=== PATIENT | female | born 1950 | race Two or more races ===

== ENCOUNTER 2018-10-02 01:00 | Inpatient (IN) | payer MEDICARE, OTHER ==
[2018-10-02] MEDS: IPRATROPIUM (NEB) 0.5 MG/2.5 ML AMP HHN (01:19)
[2018-10-02] MEDS: LEVALBUTEROL (NEB) 1.25 MG/0.5 ML AMP HHN ×2 (01:20→22:35)
[2018-10-02] MEDS ORDERED: ACETAMINOPHEN 650 MG SUPP PR (01:30)
[2018-10-02 01:32] LABS: WHITE BLOOD COUNT 11.4 10^3/ul (4.8-10.8)
[2018-10-02 01:32] LABS: HEMATOCRIT 39.8 % (37.0-47.0); MEAN CORPUSCULAR HEMOGLOBIN 20.9 pg (29.0-33.0); MEAN CORPUSCULAR HGB CONC 30.2 g/dl (32.0-37.0); MEAN CORPUSCULAR VOLUME 69.2 fl (82.0-101.0); MEAN PLATELET VOLUME 8.8 fl (7.4-10.4); PLATELET COUNT 388 10^3/UL (140-415); RED BLOOD COUNT 5.75 10^6/ul (4.20-5.40); RED CELL DISTRIBUTION WIDTH 19.9 % (11.5-14.5)
[2018-10-02] MEDS: CEFTRIAXONE 1 GM/50 ML (PMX) 50 ML IVPB (01:35)
[2018-10-02] MEDS: SODIUM CHLORIDE 0.9% 1L BAG IV* (01:35)
[2018-10-02 01:41] LABS: ADD MAN DIFF? YES; POSITIVE DIFF @See below
[2018-10-02 01:52] LABS: INR 1.73; PARTIAL THROMBOPLASTIN TIME 41.8 Sec (23.0-35.0); PROTIME 20.6 Sec (11.9-14.9); PT RATIO 1.6
[2018-10-02 01:57] LABS: ALANINE AMINOTRANSFERASE 17 IU/L (13-69); ALBUMIN 4.5 g/dl (3.3-4.9); ALBUMIN/GLOBULIN RATIO 1.66; ALKALINE PHOSPHATASE 111 IU/L (42-121); ANION GAP 16 (5-13); ASPARTATE AMINO TRANSFERASE 20 IU/L (15-46); BILIRUBIN,INDIRECT 0.9 mg/dl (0-1.1); BILIRUBIN,TOTAL 0.9 mg/dl (0.2-1.3); BLOOD UREA NITROGEN 21 mg/dl (7-20); CALCIUM 9.3 mg/dl (8.4-10.2); CARBON DIOXIDE 23 mmol/L (21-31); CHLORIDE 99 mmol/L (97-110); CREATININE 1.16 mg/dl (0.44-1.00); Estimated GFR 46 mL/min (>60); GLUCOSE 149 mg/dl (70-220); SODIUM 138 mmol/L (135-144); TOTAL PROTEIN 7.2 g/dl (6.1-8.1)
[2018-10-02 02:15] LABS: ADD UMIC YES; UR ASCORBIC ACID 40 mg/dL (NEGATIVE); UR BACTERIA FEW /HPF (NONE SEEN); UR BILIRUBIN (Dip) NEGATIVE (NEGATIVE); UR BLOOD (Dip) NEGATIVE (NEGATIVE); UR CLARITY SLIGHTLY CLOUDY (CLEAR); UR COLOR YELLOW (YELLOW); UR GLUCOSE (Dip) NEGATIVE (NEGATIVE); UR KETONES (Dip) NEGATIVE (NEGATIVE); UR LEUKOCYTE ESTERASE (Dip) 1+ Leu/ul (NEGATIVE); UR NITRITE (Dip) NEGATIVE (NEGATIVE); UR RBC 8 /HPF (0-5); UR SPECIFIC GRAVITY (Dip) 1.012 (1.003-1.030); UR TOTAL PROTEIN (Dip) 3+ mg/dl (NEGATIVE); UR UROBILINOGEN (Dip) NEGATIVE (NEGATIVE); UR WBC 20 /HPF (0-5)
[2018-10-02 02:19] LABS: AADO2 Arterial 162.7 mmHg (7.0-24.0); Allen Test ACCEPTAB; Arterial Base Excess 0.4 mmol/L (-3.0-3); Arterial Blood Gas Oxygen Sat 91.1 mmHG (95.0-98.0); Arterial COHb 1.1 % (0.0-3.0); Arterial HCO3 23.5 mmol/L (22.0-26.0); Arterial MetHb 0.1 % (0.0-1.5); Arterial Total Hemglobin 12.1 g/dl (12.0-18.0); Arterial pCO2 32.9 mmhg (35-45); MODE NASAL CANNULA; Site Right Radial
[2018-10-02] MEDS: AZITHROMYCIN 500MG/NS (PMX) 250 ML IVPB (02:21)
[2018-10-02 02:27] LABS: ANISOCYTOSIS 2+ (0-0); BAND NEUTROPHILS % (M) 9 % (0-4); BASOPHIL #M 0.2 10^3/ul (0.0-0.0); BASOPHILS % (M) 2 % (0-2); EOSINOPHILS % (M) 1 % (0-7); LYMPHOCYTES #M 1.3 10^3/ul (0.8-2.9); LYMPHOCYTES % (M) 12 % (15-51); MICROCYTOSIS 2+ (0-0); MONOCYTE #M 0.2 10^3/ul (0.3-0.9); MONOCYTES % (M) 2 % (0-11); MYELOCYTES #M 0.1 10^3/ul (0.0-0.0); MYELOCYTES % (M) 1 % (0-0); PLATELET ESTIMATE NORMAL; POIKILOCYTOSIS 2+ (0-0); REACTIVE LYMPHOCYTES #M 0.1 10^3/ul (0.0-0.0); REACTIVE LYMPHOCYTES% (M) 1 % (0-0); SEG NEUT #M 8.3 10^3/ul (1.6-7.5); SEGMENTED NEUTROPHILS (M) % 72 % (39-77); SMUDGE%M 7 % (0-0)
[2018-10-02] MEDS: ACETAMINOPHEN 325 MG TAB PO (02:44)
[2018-10-02] MEDS ORDERED: ONDANSETRON 4 MG INJ IV (03:00)
[2018-10-02] MEDS: SOD CHLORIDE 0.9% 1,000 ML IV ×2 (04:49→22:08)
[2018-10-02 06:23] LABS: LACTIC ACID 0.9 mmol/L (0.5-2.0)
[2018-10-02 06:36] LABS: IRON 11 ug/dl (35-150)
[2018-10-02 06:46] LABS: % IRON SATURATION 3 % SAT (22-52); TOTAL IRON BINDING CAPACITY 360 ug/dl (241-421)
[2018-10-02] MEDS: PIPER-TAZO 3.375 GM IV (PMX) 100 ML IVPB ×3 (06:47→17:23)
[2018-10-02] MEDS: PANTOPRAZOLE (EC) 40 MG TAB PO (06:47)
[2018-10-02] MEDS: LEVOTHYROXINE 50 MCG TAB PO (06:47)
[2018-10-02 07:07] LABS: FERRITIN 39.3 ng/ml (11.1-264.0)
[2018-10-02] MEDS: DOFETILIDE 125 MCG CAPSULE PO ×2 (09:00→14:25)
[2018-10-02 09:52] LABS: LACTIC ACID 1.2 mmol/L (0.5-2.0)
[2018-10-02] MEDS: ASPIRIN (EC) 81 MG TAB PO (09:54)
[2018-10-02] MEDS: DILTIAZEM (CD) 180 MG CAP PO (09:54)
[2018-10-02] MEDS: APIXABAN 5 MG TABLET PO ×2 (09:54→22:07)
[2018-10-02] MEDS: ACETAMINOPHEN 650MG/20.3ML CUP PO ×2 (14:27→22:09)
[2018-10-02 14:32] LABS: LACTIC ACID 0.9 mmol/L (0.5-2.0)
[2018-10-02] MEDS: ATORVASTATIN 10 MG TAB PO (22:07)
[2018-10-02] MEDS: IPRATROPIUM (NEB) 0.5 MG/2.5 ML AMP NEB (22:36)
[2018-10-03] MEDS: DOFETILIDE 125 MCG CAPSULE PO ×3 (00:11→20:38)
[2018-10-03] MEDS: PIPER-TAZO 3.375 GM IV (PMX) 100 ML IVPB ×4 (00:11→17:36)
[2018-10-03 05:36] LABS: ADD MAN DIFF? NO
[2018-10-03 05:42] LABS: BASOPHIL # 0.1 10^3/ul (0.0-0.1); BASOPHILS % 0.8 % (0.0-2.0); EOSINOPHILS # 0.1 10^3/ul (0.0-0.5); EOSINOPHILS % 1.4 % (0.0-7.0); HEMATOCRIT 35.5 % (37.0-47.0); HEMOGLOBIN 10.5 g/dl (12.0-16.0); LYMPHOCYTES # 0.9 10^3/ul (0.8-2.9); LYMPHOCYTES % 9.4 % (15.0-51.0); MEAN CORPUSCULAR HGB CONC 29.6 g/dl (32.0-37.0); MONOCYTES % 10.8 % (0.0-11.0); NEUTROPHILS % 76.9 % (39.0-77.0); PLATELET COUNT 422 10^3/UL (140-415); RED CELL DISTRIBUTION WIDTH 19.7 % (11.5-14.5)
[2018-10-03 05:42] LABS: WHITE BLOOD COUNT 9.1 10^3/ul (4.8-10.8)
[2018-10-03] MEDS: PANTOPRAZOLE (EC) 40 MG TAB PO (06:20)
[2018-10-03] MEDS: LEVOTHYROXINE 50 MCG TAB PO (06:20)
[2018-10-03 07:29] LABS: ALANINE AMINOTRANSFERASE 19 IU/L (13-69); ALBUMIN 3.6 g/dl (3.3-4.9); ALKALINE PHOSPHATASE 80 IU/L (42-121); ANION GAP 12 (5-13); ASPARTATE AMINO TRANSFERASE 25 IU/L (15-46); BILIRUBIN,INDIRECT 0.5 mg/dl (0-1.1); BILIRUBIN,TOTAL 0.5 mg/dl (0.2-1.3); BLOOD UREA NITROGEN 13 mg/dl (7-20); CALCIUM 9.2 mg/dl (8.4-10.2); CARBON DIOXIDE 20 mmol/L (21-31); CHLORIDE 108 mmol/L (97-110); CREATININE 0.82 mg/dl (0.44-1.00); Estimated GFR > 60 mL/min (>60); GLUCOSE 116 mg/dl (70-220); POTASSIUM 4.5 mmol/L (3.5-5.1); SODIUM 140 mmol/L (135-144); TOTAL PROTEIN 5.6 g/dl (6.1-8.1)
[2018-10-03] MEDS: METHYLPREDNISOLONE 40 MG INJ IV ×3 (10:29→22:00)
[2018-10-03] MEDS: APIXABAN 5 MG TABLET PO ×2 (10:29→20:36)
[2018-10-03] MEDS: ASPIRIN (EC) 81 MG TAB PO (10:29)
[2018-10-03] MEDS: DILTIAZEM (CD) 180 MG CAP PO (10:31)
[2018-10-03] MEDS: FUROSEMIDE 20 MG INJ IV ×2 (15:13→20:36)
[2018-10-03 16:26] LABS: B-TYPE NATRIURETIC PEPTIDE 1440 PG/ML (0-125)
[2018-10-03] MEDS: SOD FERRIC GLUC COMPLX 125 MG in SOD CHLORIDE 0.9% 100 ML IVPB (18:34)
[2018-10-03] MEDS: IPRATROPIUM (NEB) 0.5 MG/2.5 ML AMP NEB (20:06)
[2018-10-03] MEDS: traZODone 50 MG TAB PO (20:36)
[2018-10-03] MEDS: ATORVASTATIN 10 MG TAB PO (20:36)
[2018-10-04 05:38] LABS: ADD MAN DIFF? NO
[2018-10-04 05:42] LABS: BASOPHILS % 0.2 % (0.0-2.0); HEMATOCRIT 31.4 % (37.0-47.0); HEMOGLOBIN 9.4 g/dl (12.0-16.0); LYMPHOCYTES # 0.6 10^3/ul (0.8-2.9); MEAN CORPUSCULAR HEMOGLOBIN 20.9 pg (29.0-33.0); MEAN CORPUSCULAR HGB CONC 29.9 g/dl (32.0-37.0); MEAN CORPUSCULAR VOLUME 69.9 fl (82.0-101.0); MONOCYTE # 0.6 10^3/ul (0.3-0.9); MONOCYTES % 6.8 % (0.0-11.0); NEUTROPHIL # 6.8 10^3/ul (1.6-7.5); PLATELET COUNT 418 10^3/UL (140-415); RED BLOOD COUNT 4.49 10^6/ul (4.20-5.40); RED CELL DISTRIBUTION WIDTH 19.7 % (11.5-14.5)
[2018-10-04 05:42] LABS: WHITE BLOOD COUNT 8.1 10^3/ul (4.8-10.8)
[2018-10-04] MEDS: METHYLPREDNISOLONE 40 MG INJ IV (06:10)
[2018-10-04] MEDS: LEVOTHYROXINE 50 MCG TAB PO (06:10)
[2018-10-04] MEDS: PANTOPRAZOLE (EC) 40 MG TAB PO (06:10)
[2018-10-04] MEDS: PIPER-TAZO 3.375 GM IV (PMX) 100 ML IVPB ×3 (06:11→12:47)
[2018-10-04] MEDS: FUROSEMIDE 20 MG INJ IV ×2 (06:56→19:00)
[2018-10-04 07:36] LABS: ALANINE AMINOTRANSFERASE 24 IU/L (13-69); ALBUMIN 3.7 g/dl (3.3-4.9); ALKALINE PHOSPHATASE 69 IU/L (42-121); ANION GAP 10 (5-13); ASPARTATE AMINO TRANSFERASE 21 IU/L (15-46); BILIRUBIN,INDIRECT 0.2 mg/dl (0-1.1); BILIRUBIN,TOTAL 0.2 mg/dl (0.2-1.3); BLOOD UREA NITROGEN 16 mg/dl (7-20); CALCIUM 9.3 mg/dl (8.4-10.2); CARBON DIOXIDE 23 mmol/L (21-31); CHLORIDE 107 mmol/L (97-110); CREATININE 0.83 mg/dl (0.44-1.00); Estimated GFR > 60 mL/min (>60); GLUCOSE 143 mg/dl (70-220); POTASSIUM 4.3 mmol/L (3.5-5.1); SODIUM 140 mmol/L (135-144)
[2018-10-04] MEDS: IPRATROPIUM (NEB) 0.5 MG/2.5 ML AMP NEB (09:09)
[2018-10-04] MEDS ORDERED: ALBUTEROL/IPRATROPIUM (NEB) 3 ML AMP HHN (09:30)
[2018-10-04] MEDS: ASPIRIN (EC) 81 MG TAB PO (09:45)
[2018-10-04] MEDS: DOFETILIDE 125 MCG CAPSULE PO ×2 (09:45→21:00)
[2018-10-04] MEDS: APIXABAN 5 MG TABLET PO ×2 (09:45→21:30)
[2018-10-04] MEDS: DILTIAZEM (CD) 180 MG CAP PO (09:45)
[2018-10-04] MEDS: FLUTICASONE/VILANTEROL 100-25 INH (10:45)
[2018-10-04] MEDS: TIOTROPIUM 18 MCG CAPSULE INHA DEV INH (10:45)
[2018-10-04] MEDS: predniSONE 20 MG TAB PO (15:52)
[2018-10-04] MEDS: LEVOFLOXACIN 750MG/D5W (PMX) 150 ML IVPB (16:00)
[2018-10-04] MEDS: SOD FERRIC GLUC COMPLX 125 MG in SOD CHLORIDE 0.9% 100 ML IVPB (16:08)
[2018-10-04] MEDS: BISACODYL (EC) 5 MG TAB PO (17:19)
[2018-10-04] MEDS: ATORVASTATIN 10 MG TAB PO (21:30)
[2018-10-04] MEDS: traZODone 50 MG TAB PO (21:31)
[2018-10-05] MEDS: PANTOPRAZOLE (EC) 40 MG TAB PO (05:26)
[2018-10-05] MEDS: FUROSEMIDE 20 MG INJ IV ×2 (05:26→18:23)
[2018-10-05] MEDS: LEVOTHYROXINE 50 MCG TAB PO (05:26)
[2018-10-05 05:42] LABS: ADD MAN DIFF? NO
[2018-10-05] MEDS: POLYETHYLENE GLYCOL 17 GM PACKET PO (06:00)
[2018-10-05 06:07] LABS: WHITE BLOOD COUNT 17.9 10^3/ul (4.8-10.8)
[2018-10-05 06:07] LABS: BASOPHIL # 0.1 10^3/ul (0.0-0.1); BASOPHILS % 0.3 % (0.0-2.0); HEMATOCRIT 37.4 % (37.0-47.0); HEMOGLOBIN 11.1 g/dl (12.0-16.0); LYMPHOCYTES # 1.2 10^3/ul (0.8-2.9); LYMPHOCYTES % 6.6 % (15.0-51.0); MEAN CORPUSCULAR HGB CONC 29.7 g/dl (32.0-37.0); MEAN CORPUSCULAR VOLUME 70.8 fl (82.0-101.0); MEAN PLATELET VOLUME 9.8 fl (7.4-10.4); MONOCYTE # 0.7 10^3/ul (0.3-0.9); MONOCYTES % 3.9 % (0.0-11.0); NEUTROPHIL # 15.5 10^3/ul (1.6-7.5); NEUTROPHILS % 86.4 % (39.0-77.0); NUCLEATED RED BLOOD CELLS% 0.2 /100WBC (0.0-0.0); PLATELET COUNT 639 10^3/UL (140-415); RED BLOOD COUNT 5.28 10^6/ul (4.20-5.40); RED CELL DISTRIBUTION WIDTH 20.2 % (11.5-14.5)
[2018-10-05 06:09] LABS: ALANINE AMINOTRANSFERASE 24 IU/L (13-69); ALBUMIN 4.4 g/dl (3.3-4.9); ALBUMIN/GLOBULIN RATIO 1.62; ALKALINE PHOSPHATASE 76 IU/L (42-121); ANION GAP 12 (5-13); ASPARTATE AMINO TRANSFERASE 30 IU/L (15-46); BILIRUBIN,INDIRECT 0.2 mg/dl (0-1.1); BILIRUBIN,TOTAL 0.2 mg/dl (0.2-1.3); BLOOD UREA NITROGEN 23 mg/dl (7-20); CALCIUM 10.2 mg/dl (8.4-10.2); CARBON DIOXIDE 27 mmol/L (21-31); CHLORIDE 105 mmol/L (97-110); CREATININE 0.87 mg/dl (0.44-1.00); Estimated GFR > 60 mL/min (>60); GLUCOSE 158 mg/dl (70-220); POTASSIUM 4.1 mmol/L (3.5-5.1); SODIUM 144 mmol/L (135-144); TOTAL PROTEIN 7.1 g/dl (6.1-8.1)
[2018-10-05 06:32] LABS: MAGNESIUM 2.3 mg/dl (1.7-2.5)
[2018-10-05] MEDS: DOCUSATE SODIUM 100 MG CAP PO (08:36)
[2018-10-05] MEDS: ASPIRIN (EC) 81 MG TAB PO (08:36)
[2018-10-05] MEDS: BISACODYL (EC) 5 MG TAB PO (08:36)
[2018-10-05] MEDS: APIXABAN 5 MG TABLET PO ×2 (08:36→21:57)
[2018-10-05] MEDS: TIOTROPIUM 18 MCG CAPSULE INHA DEV INH (08:37)
[2018-10-05] MEDS: DILTIAZEM (CD) 180 MG CAP PO (08:37)
[2018-10-05] MEDS: FLUTICASONE/VILANTEROL 100-25 INH (08:37)
[2018-10-05] MEDS: predniSONE 20 MG TAB PO (08:37)
[2018-10-05] MEDS: DOFETILIDE 125 MCG CAPSULE PO ×2 (08:55→21:56)
[2018-10-05] MEDS ORDERED: ALBUTEROL/IPRATROPIUM (NEB) 3 ML AMP HHN (10:30)
[2018-10-05] MEDS: BUDESONIDE (NEB) 0.5MG/2ML AMP HHN ×2 (10:30→19:39)
[2018-10-05] MEDS: METHYLPREDNISOLONE 40 MG INJ IV ×2 (12:09→21:57)
[2018-10-05] MEDS: ALBUTEROL/IPRATROPIUM (NEB) 3 ML AMP HHN ×2 (15:02→19:39)
[2018-10-05] MEDS: LEVOFLOXACIN 750MG/D5W (PMX) 150 ML IVPB (15:28)
[2018-10-05] MEDS: SOD FERRIC GLUC COMPLX 125 MG in SOD CHLORIDE 0.9% 100 ML IVPB (16:36)
[2018-10-05] MEDS: ATORVASTATIN 10 MG TAB PO (21:57)
[2018-10-05] MEDS: traZODone 50 MG TAB PO (21:57)
[2018-10-06 06:13] LABS: WHITE BLOOD COUNT 16.8 10^3/ul (4.8-10.8)
[2018-10-06 06:13] LABS: ABNORMAL IP MESSAGE 1; HEMATOCRIT 35.1 % (37.0-47.0); HEMOGLOBIN 10.3 g/dl (12.0-16.0); MEAN CORPUSCULAR HEMOGLOBIN 20.9 pg (29.0-33.0); MEAN CORPUSCULAR HGB CONC 29.3 g/dl (32.0-37.0); MEAN CORPUSCULAR VOLUME 71.3 fl (82.0-101.0); NUCLEATED RED BLOOD CELLS% 0.2 /100WBC (0.0-0.0); PLATELET COUNT 570 10^3/UL (140-415); RED BLOOD COUNT 4.92 10^6/ul (4.20-5.40)
[2018-10-06 06:19] LABS: ADD MAN DIFF? YES; POSITIVE DIFF @See below
[2018-10-06] MEDS: PANTOPRAZOLE (EC) 40 MG TAB PO (06:20)
[2018-10-06] MEDS: LEVOTHYROXINE 50 MCG TAB PO (06:20)
[2018-10-06] MEDS: FUROSEMIDE 20 MG INJ IV ×2 (06:20→17:00)
[2018-10-06 06:51] LABS: MAGNESIUM 2.2 mg/dl (1.7-2.5)
[2018-10-06 06:57] LABS: ALANINE AMINOTRANSFERASE 39 IU/L (13-69); ALBUMIN 3.7 g/dl (3.3-4.9); ALBUMIN/GLOBULIN RATIO 1.32; ALKALINE PHOSPHATASE 72 IU/L (42-121); ANION GAP 11 (5-13); ASPARTATE AMINO TRANSFERASE 28 IU/L (15-46); BILIRUBIN,INDIRECT 0.3 mg/dl (0-1.1); BILIRUBIN,TOTAL 0.3 mg/dl (0.2-1.3); BLOOD UREA NITROGEN 26 mg/dl (7-20); CALCIUM 9.7 mg/dl (8.4-10.2); CARBON DIOXIDE 25 mmol/L (21-31); CHLORIDE 108 mmol/L (97-110); Estimated GFR > 60 mL/min (>60); GLUCOSE 163 mg/dl (70-220); SODIUM 144 mmol/L (135-144); TOTAL PROTEIN 6.5 g/dl (6.1-8.1)
[2018-10-06 07:05] LABS: POTASSIUM 4.2 mmol/L (3.5-5.1)
[2018-10-06] MEDS: ASPIRIN (EC) 81 MG TAB PO (08:07)
[2018-10-06] MEDS: METHYLPREDNISOLONE 40 MG INJ IV (08:07)
[2018-10-06] MEDS: APIXABAN 5 MG TABLET PO ×2 (08:07→21:17)
[2018-10-06] MEDS: DOFETILIDE 125 MCG CAPSULE PO ×2 (08:08→21:18)
[2018-10-06] MEDS: DILTIAZEM (CD) 180 MG CAP PO (08:09)
[2018-10-06 08:37] LABS: ANISOCYTOSIS 2+ (0-0); BAND NEUTROPHILS #M 0.3 10^3/ul (0.0-0.6); BAND NEUTROPHILS % (M) 2 % (0-4); BURR CELLS 1+ (0-0); GIANT THROMBO% (M) 1 % (0-0); LYMPHOCYTES #M 0.5 10^3/ul (0.8-2.9); LYMPHOCYTES % (M) 3 % (15-51); METAMYELOCYTES #M 0.1 10^3/ul (0.0-0.0); METAMYELOCYTES %M 1 % (0-0); MICROCYTOSIS 2+ (0-0); MONOCYTE #M 0.6 10^3/ul (0.3-0.9); MONOCYTES % (M) 4 % (0-11); MYELOCYTES #M 0.6 10^3/ul (0.0-0.0); MYELOCYTES % (M) 4 % (0-0); OVALOCYTES 1+ (0-0); PLATELET ESTIMATE INCREASED; POIKILOCYTOSIS 3+ (0-0); SEG NEUT #M 14.5 10^3/ul (1.6-7.5); SEGMENTED NEUTROPHILS (M) % 86 % (39-77); SMUDGE%M 8 % (0-0)
[2018-10-06] MEDS: BUDESONIDE (NEB) 0.5MG/2ML AMP HHN ×2 (08:38→20:45)
[2018-10-06] MEDS: ALBUTEROL/IPRATROPIUM (NEB) 3 ML AMP HHN ×3 (08:38→20:45)
[2018-10-06] MEDS: DOXYCYCLINE 100 MG TAB PO ×2 (11:06→21:17)
[2018-10-06] MEDS: predniSONE 20 MG TAB PO (12:25)
[2018-10-06] MEDS: TIOTROPIUM 18 MCG CAPSULE INHA DEV INH (12:25)
[2018-10-06] MEDS: SOD FERRIC GLUC COMPLX 125 MG in SOD CHLORIDE 0.9% 100 ML IVPB (17:00)
[2018-10-06] MEDS: ATORVASTATIN 10 MG TAB PO (21:17)
[2018-10-06] MEDS: CEPHALEXIN 500 MG CAP PO (21:29)
[2018-10-06] MEDS: traZODone 50 MG TAB PO (21:29)
[2018-10-07] MEDS: CEPHALEXIN 500 MG CAP PO ×3 (05:24→22:06)
[2018-10-07] MEDS: LEVOTHYROXINE 50 MCG TAB PO (05:24)
[2018-10-07] MEDS: PANTOPRAZOLE (EC) 40 MG TAB PO (05:24)
[2018-10-07] MEDS: FUROSEMIDE 20 MG INJ IV ×2 (05:25→17:11)
[2018-10-07 06:17] LABS: WHITE BLOOD COUNT 23.2 10^3/ul (4.8-10.8)
[2018-10-07 06:17] LABS: ABNORMAL IP MESSAGE 1; HEMATOCRIT 34.7 % (37.0-47.0); HEMOGLOBIN 10.3 g/dl (12.0-16.0); MEAN CORPUSCULAR HGB CONC 29.7 g/dl (32.0-37.0); MEAN CORPUSCULAR VOLUME 70.8 fl (82.0-101.0); MEAN PLATELET VOLUME 9.9 fl (7.4-10.4); NUCLEATED RED BLOOD CELLS% 0.3 /100WBC (0.0-0.0); PLATELET COUNT 643 10^3/UL (140-415); RED CELL DISTRIBUTION WIDTH 21.3 % (11.5-14.5)
[2018-10-07 06:19] LABS: ADD MAN DIFF? YES; POSITIVE DIFF @See below
[2018-10-07 06:44] LABS: ANION GAP 13 (5-13); BLOOD UREA NITROGEN 27 mg/dl (7-20); CALCIUM 9.6 mg/dl (8.4-10.2); CARBON DIOXIDE 26 mmol/L (21-31); CHLORIDE 107 mmol/L (97-110); Estimated GFR > 60 mL/min (>60); GLUCOSE 162 mg/dl (70-220); MAGNESIUM 2.1 mg/dl (1.7-2.5); PHOSPHORUS 3.6 mg/dl (2.5-4.9); POTASSIUM 4.2 mmol/L (3.5-5.1); SODIUM 146 mmol/L (135-144)
[2018-10-07] MEDS: FLUTICASONE/VILANTEROL 100-25 INH (08:48)
[2018-10-07] MEDS: predniSONE 10 MG TAB PO (08:49)
[2018-10-07] MEDS: TIOTROPIUM 18 MCG CAPSULE INHA DEV INH (08:49)
[2018-10-07] MEDS: DOXYCYCLINE 100 MG TAB PO ×2 (08:49→20:36)
[2018-10-07] MEDS: ASPIRIN (EC) 81 MG TAB PO (08:49)
[2018-10-07] MEDS: DOFETILIDE 125 MCG CAPSULE PO ×2 (08:49→20:36)
[2018-10-07] MEDS: DILTIAZEM (CD) 180 MG CAP PO (08:50)
[2018-10-07] MEDS: APIXABAN 5 MG TABLET PO ×2 (08:50→20:36)
[2018-10-07] MEDS: BUDESONIDE (NEB) 0.5MG/2ML AMP HHN ×2 (09:20→20:52)
[2018-10-07] MEDS: ALBUTEROL/IPRATROPIUM (NEB) 3 ML AMP HHN ×3 (09:20→20:52)
[2018-10-07 09:24] LABS: ANISOCYTOSIS 2+ (0-0); BAND NEUTROPHILS % (M) 9 % (0-4); BURR CELLS 2+ (0-0); ERYTHROBLAST% (NRBC) (M) 2 % (0-0); LYMPHOCYTES #M 0.6 10^3/ul (0.8-2.9); LYMPHOCYTES % (M) 3 % (15-51); METAMYELOCYTES #M 0.2 10^3/ul (0.0-0.0); METAMYELOCYTES %M 1 % (0-0); MICROCYTOSIS 2+ (0-0); MONOCYTE #M 1.8 10^3/ul (0.3-0.9); MONOCYTES % (M) 8 % (0-11); MYELOCYTES #M 1.1 10^3/ul (0.0-0.0); MYELOCYTES % (M) 5 % (0-0); PLATELET ESTIMATE INCREASED; POIKILOCYTOSIS 3+ (0-0); POLYCHROMASIA 1+ (0-0); SCHISTOCYTES 1+ (0-0); SEG NEUT #M 17.6 10^3/ul (1.6-7.5); SEGMENTED NEUTROPHILS (M) % 74 % (39-77); SMUDGE%M 6 % (0-0)
[2018-10-07] MEDS: SOD FERRIC GLUC COMPLX 125 MG in SOD CHLORIDE 0.9% 100 ML IVPB (17:12)
[2018-10-07] MEDS: ATORVASTATIN 10 MG TAB PO (20:36)
[2018-10-07] MEDS: traZODone 50 MG TAB PO (22:05)
[2018-10-08 05:38] LABS: WHITE BLOOD COUNT 20.2 10^3/ul (4.8-10.8)
[2018-10-08 05:38] LABS: ABNORMAL IP MESSAGE 1; HEMATOCRIT 34.9 % (37.0-47.0); HEMOGLOBIN 10.5 g/dl (12.0-16.0); MEAN CORPUSCULAR HEMOGLOBIN 21.6 pg (29.0-33.0); MEAN CORPUSCULAR HGB CONC 30.1 g/dl (32.0-37.0); MEAN CORPUSCULAR VOLUME 71.7 fl (82.0-101.0); MEAN PLATELET VOLUME 9.7 fl (7.4-10.4); PLATELET COUNT 614 10^3/UL (140-415); RED BLOOD COUNT 4.87 10^6/ul (4.20-5.40)
[2018-10-08 06:06] LABS: ANION GAP 9 (5-13); BLOOD UREA NITROGEN 28 mg/dl (7-20); CARBON DIOXIDE 31 mmol/L (21-31); CHLORIDE 105 mmol/L (97-110); CREATININE 0.85 mg/dl (0.44-1.00); Estimated GFR > 60 mL/min (>60); GLUCOSE 104 mg/dl (70-220); PHOSPHORUS 3.4 mg/dl (2.5-4.9); POTASSIUM 3.3 mmol/L (3.5-5.1); SODIUM 145 mmol/L (135-144)
[2018-10-08] MEDS: PANTOPRAZOLE (EC) 40 MG TAB PO (06:12)
[2018-10-08] MEDS: LEVOTHYROXINE 50 MCG TAB PO (06:12)
[2018-10-08] MEDS: CEPHALEXIN 500 MG CAP PO ×3 (06:12→20:08)
[2018-10-08] MEDS: FUROSEMIDE 20 MG INJ IV ×2 (06:12→17:07)
[2018-10-08 06:20] LABS: ADD MAN DIFF? YES; POSITIVE DIFF @See below
[2018-10-08 08:19] LABS: ANISOCYTOSIS 2+ (0-0); ERYTHROBLAST% (NRBC) (M) 1 % (0-0); LYMPHOCYTES #M 2.4 10^3/ul (0.8-2.9); LYMPHOCYTES % (M) 12 % (15-51); METAMYELOCYTES #M 0.4 10^3/ul (0.0-0.0); METAMYELOCYTES %M 2 % (0-0); MICROCYTOSIS 2+ (0-0); MONOCYTE #M 0.6 10^3/ul (0.3-0.9); MONOCYTES % (M) 3 % (0-11); MYELOCYTES #M 1.8 10^3/ul (0.0-0.0); MYELOCYTES % (M) 9 % (0-0); OVALOCYTES 1+ (0-0); PLATELET ESTIMATE INCREASED; POIKILOCYTOSIS 1+ (0-0); SEGMENTED NEUTROPHILS (M) % 74 % (39-77); SMUDGE%M 30 % (0-0)
[2018-10-08] MEDS: DOFETILIDE 125 MCG CAPSULE PO ×2 (08:20→20:08)
[2018-10-08] MEDS: DILTIAZEM (CD) 180 MG CAP PO (08:20)
[2018-10-08] MEDS: ASPIRIN (EC) 81 MG TAB PO (08:20)
[2018-10-08] MEDS: APIXABAN 5 MG TABLET PO ×2 (08:20→20:08)
[2018-10-08] MEDS: predniSONE 10 MG TAB PO (08:20)
[2018-10-08] MEDS: DOXYCYCLINE 100 MG TAB PO ×2 (08:20→20:08)
[2018-10-08] MEDS: TIOTROPIUM 18 MCG CAPSULE INHA DEV INH (08:21)
[2018-10-08] MEDS: FLUTICASONE/VILANTEROL 100-25 INH (08:21)
[2018-10-08] MEDS: ALBUTEROL/IPRATROPIUM (NEB) 3 ML AMP HHN ×3 (08:34→21:06)
[2018-10-08] MEDS: BUDESONIDE (NEB) 0.5MG/2ML AMP HHN ×2 (08:34→21:06)
[2018-10-08] MEDS: POTASSIUM CHLORIDE 20 MEQ POWDER FOR ORAL SOLN PO (10:48)
[2018-10-08] MEDS: METHYLPREDNISOLONE 40 MG INJ IV ×2 (14:52→20:07)
[2018-10-08] MEDS: ATORVASTATIN 10 MG TAB PO (20:08)
[2018-10-08] MEDS: traZODone 50 MG TAB PO (21:23)
[2018-10-09] MEDS: CEPHALEXIN 500 MG CAP PO ×2 (05:26→13:08)
[2018-10-09] MEDS: METHYLPREDNISOLONE 40 MG INJ IV ×2 (05:26→13:08)
[2018-10-09] MEDS: LEVOTHYROXINE 50 MCG TAB PO (05:26)
[2018-10-09] MEDS: PANTOPRAZOLE (EC) 40 MG TAB PO (05:26)
[2018-10-09] MEDS: FUROSEMIDE 20 MG INJ IV ×2 (05:27→18:31)
[2018-10-09 06:28] LABS: WHITE BLOOD COUNT 20.5 10^3/ul (4.8-10.8)
[2018-10-09 06:28] LABS: ABNORMAL IP MESSAGE 1; HEMATOCRIT 36.5 % (37.0-47.0); HEMOGLOBIN 10.9 g/dl (12.0-16.0); MEAN CORPUSCULAR HEMOGLOBIN 21.5 pg (29.0-33.0); MEAN CORPUSCULAR HGB CONC 29.9 g/dl (32.0-37.0); MEAN CORPUSCULAR VOLUME 71.9 fl (82.0-101.0); MEAN PLATELET VOLUME 9.9 fl (7.4-10.4); NUCLEATED RED BLOOD CELLS% 0.2 /100WBC (0.0-0.0); PLATELET COUNT 673 10^3/UL (140-415); RED BLOOD COUNT 5.08 10^6/ul (4.20-5.40); RED CELL DISTRIBUTION WIDTH 22.6 % (11.5-14.5)
[2018-10-09 06:35] LABS: POSITIVE DIFF @See below
[2018-10-09 06:36] LABS: ADD MAN DIFF? YES
[2018-10-09 07:13] LABS: ANION GAP 9 (5-13); BLOOD UREA NITROGEN 25 mg/dl (7-20); CALCIUM 9.2 mg/dl (8.4-10.2); CARBON DIOXIDE 30 mmol/L (21-31); CHLORIDE 102 mmol/L (97-110); CREATININE 0.82 mg/dl (0.44-1.00); Estimated GFR > 60 mL/min (>60); GLUCOSE 155 mg/dl (70-220); MAGNESIUM 2.3 mg/dl (1.7-2.5); PHOSPHORUS 4.4 mg/dl (2.5-4.9); POTASSIUM 4.5 mmol/L (3.5-5.1); SODIUM 141 mmol/L (135-144)
[2018-10-09] MEDS: ALBUTEROL/IPRATROPIUM (NEB) 3 ML AMP HHN ×3 (08:21→20:00)
[2018-10-09] MEDS: BUDESONIDE (NEB) 0.5MG/2ML AMP HHN ×2 (08:21→20:00)
[2018-10-09] MEDS: FLUTICASONE/VILANTEROL 100-25 INH (08:35)
[2018-10-09] MEDS: DOFETILIDE 125 MCG CAPSULE PO (08:35)
[2018-10-09] MEDS: DILTIAZEM (CD) 180 MG CAP PO (08:36)
[2018-10-09] MEDS: APIXABAN 5 MG TABLET PO (08:36)
[2018-10-09] MEDS: DOXYCYCLINE 100 MG TAB PO (08:36)
[2018-10-09] MEDS: ASPIRIN (EC) 81 MG TAB PO (08:36)
[2018-10-09 10:16] LABS: ANISOCYTOSIS 2+ (0-0); BAND NEUTROPHILS % (M) 5 % (0-4); BURR CELLS 1+ (0-0); GIANT THROMBO% (M) 2 % (0-0); LYMPHOCYTES #M 0.6 10^3/ul (0.8-2.9); LYMPHOCYTES % (M) 3 % (15-51); METAMYELOCYTES #M 0.2 10^3/ul (0.0-0.0); METAMYELOCYTES %M 1 % (0-0); MICROCYTOSIS 2+ (0-0); MONOCYTE #M 0.6 10^3/ul (0.3-0.9); MONOCYTES % (M) 3 % (0-11); MYELOCYTES #M 0.4 10^3/ul (0.0-0.0); MYELOCYTES % (M) 2 % (0-0); OVALOCYTES 1+ (0-0); PLATELET ESTIMATE INCREASED; POIKILOCYTOSIS 2+ (0-0); POLYCHROMASIA 1+ (0-0); SEG NEUT #M 17.8 10^3/ul (1.6-7.5); SEGMENTED NEUTROPHILS (M) % 86 % (39-77); SMUDGE%M 16 % (0-0)
[2018-10-12 12:16] LABS: NIL 0.04 IU/mL; QUANTIFERON(R)-TB GOLD NEGATIVE (NEGATIVE); TB-NIL <0.00 IU/mL
== END 2018-10-09 20:36 | disposition short-term general hospital (02) | DRG 871 ==
LOC: E/R 01:00 → ICU 02:45 → 6WM 18:58
DX: A41.9 Sepsis, unspecified organism (principal); J18.9 Pneumonia, unspecified organism; J96.21 Acute and chronic respiratory failure with hypoxia; N39.0 Urinary tract infection, site not specified; N17.9 Acute kidney failure, unspecified; D68.59 Other primary thrombophilia; I50.30 Unspecified diastolic (congestive) heart failure; Z68.41 Body mass index [BMI] 40.0-44.9, adult; J21.9 Acute bronchiolitis, unspecified; J44.1 Chronic obstructive pulmonary disease with (acute) exacerbation; J44.0 Chronic obstructive pulmonary disease with (acute) lower respiratory infection; R65.20 Severe sepsis without septic shock; D64.9 Anemia, unspecified; E03.9 Hypothyroidism, unspecified; E78.5 Hyperlipidemia, unspecified; I11.0 Hypertensive heart disease with heart failure; I25.10 Atherosclerotic heart disease of native coronary artery without angina pectoris; I48.0 Paroxysmal atrial fibrillation; F41.9 Anxiety disorder, unspecified; E66.01 Morbid (severe) obesity due to excess calories; I08.0 Rheumatic disorders of both mitral and aortic valves; B96.20 Unspecified Escherichia coli [E. coli] as the cause of diseases classified elsewhere; Z87.891 Personal history of nicotine dependence
CPT/HCPCS: 36415; 36600; 71045; 71250; 80048; 80053; 81001; 82728; 82803; 82962; 83540; 83605; 83735; 83880; 84100; 84484; 85025; 85610; 85730; 86480; 86635; 87040; 87081; 87086; 87400; 93005; 93306; 94640; 94664; 96365; 96367; 99291-25